=== PATIENT | female | born 1980 | race Caucasian/White ===

== ENCOUNTER 2021-12-04 15:02 | Outpatient (CLI) | payer BC, SELFPAY ==
[2021-12-06 20:13] LABS: Follicle Stimulating Hormone 4.3 IU/L
[2021-12-06 23:49] LABS: Prolactin 7.6 ng/mL (2.8-29.2)
[2021-12-10 06:35] LABS: 17-Hydroxyprogesterone HPLC 147.25 ng/dL (<=206.00)
[2021-12-12 13:09] LABS: Sex Hormone Binding Globulin 117 nmol/L (25-122); Testosterone Bioavailable 4.1 ng/dL (4.1-25.5); Testosterone, Free LC-MS/MS 1.3 pg/mL (1.3-9.2); Testosterone, LC-MS/MS 19 ng/dL (9-55)
== END 2021-12-04 15:03 | disposition home or self-care (01) ==
PROVIDERS: Visit Provider Obstetrics & Gynecology
DX: N91.5 Oligomenorrhea, unspecified (principal)
CPT/HCPCS: 83001; 83498; 84146; 84270; 84402; 84403; 84443